=== PATIENT | male | born 1995 | race Caucasian/White ===

== ENCOUNTER 2016-08-13 01:10 | Emergency (ER) | payer BC, OTHER ==
[2016-08-13 01:50] LABS: HEMOGLOBIN 15.2 gm/dl (14.0-17.5); RED BLOOD COUNT 5.24 M/UL (4.20-5.50)
[2016-08-13 02:03] LABS: BUN/CREATININE RATIO 19 (0-10)
== END 2016-08-13 03:45 | disposition home or self-care (01) ==
LOC: ER1 01:10
PROVIDERS: Family Medicine
DX: G40.309 Generalized idiopathic epilepsy and epileptic syndromes, not intractable, without status epilepticus (principal); Z79.899 Other long term (current) drug therapy
CPT/HCPCS: 36415; 80053; 80185; 85025; 96374; 99285; Q2009

== ENCOUNTER 2020-11-26 04:45 | Emergency (ER) | payer BC ==
[~2020-11-26 04:45] MED LIST: IBUPROFEN600 MG PO; VIBRAMYCIN100 MG PO
[2020-11-26] MEDS ORDERED: LODINE CAP 300300 MG PO (05:03)
== END 2020-11-26 05:12 | disposition home or self-care (01) ==
LOC: ER1 04:45
DX: S61.512A Laceration without foreign body of left wrist, initial encounter (principal); W26.8XXA Contact with other sharp object(s), not elsewhere classified, initial encounter; Y92.009 Unspecified place in unspecified non-institutional (private) residence as the place of occurrence of the external cause; Z23 Encounter for immunization
CPT/HCPCS: 12001; 73110; 90471; 90715; 99283

== ENCOUNTER 2021-08-23 17:44 | Emergency (ER) | payer OTHER ==
[~2021-08-23 17:44] MED LIST changes: +LODINE CAP 300300 MG PO
[2021-08-23 18:21] LABS: RED BLOOD COUNT 5.37 M/UL (4.20-5.50); WHITE BLOOD COUNT 9.1 K/UL (4.5-11.0)
[2021-08-23 18:39] LABS: BUN/CREATININE RATIO 15 (0-10)
[2021-08-23] MEDS ORDERED: ZOFRAN ODT 4 MG4 MG PO (21:29)
== END 2021-08-23 21:30 | disposition home or self-care (01) ==
LOC: ER1 17:44
PROVIDERS: Emergency Medicine
DX: S00.81XA Abrasion of other part of head, initial encounter (principal); S00.31XA Abrasion of nose, initial encounter; S10.91XA Abrasion of unspecified part of neck, initial encounter; S20.412A Abrasion of left back wall of thorax, initial encounter; S30.810A Abrasion of lower back and pelvis, initial encounter; R91.1 Solitary pulmonary nodule; G40.909 Epilepsy, unspecified, not intractable, without status epilepticus; V49.9XXA Car occupant (driver) (passenger) injured in unspecified traffic accident, initial encounter; Y92.410 Unspecified street and highway as the place of occurrence of the external cause
CPT/HCPCS: 70450; 71045; 71260; 72125; 80053; 85025; 90471; 90715; 93005; 96374; 99285; J1885; Q9967

== ENCOUNTER 2021-09-02 09:39 | Emergency (ER) | payer BC, OTHER ==
[~2021-09-02 09:39] MED LIST changes: +ZOFRAN ODT 4 MG4 MG PO
== END 2021-09-02 10:33 | disposition home or self-care (01) ==
LOC: ER1 09:39
DX: M25.511 Pain in right shoulder (principal)
CPT/HCPCS: 73030; 96372; 99283; J2360

== ENCOUNTER → 2021-09-12 | Outpatient (CLI) | payer BC, OTHER | LOC: EMI 08:07 → KOH-I 08:07 → EMI 08:15 | DX: M50.20 Other cervical disc displacement, unspecified cervical region (principal); M50.30 Other cervical disc degeneration, unspecified cervical region; M25.511 Pain in right shoulder | CPT/HCPCS: 72141; 73221 ==

== ENCOUNTER → 2021-09-25 | Outpatient (CLI) | payer BC, OTHER | LOC: MRI 09-24 10:30 | DX: M89.9 Disorder of bone, unspecified (principal); R93.7 Abnormal findings on diagnostic imaging of other parts of musculoskeletal system; D18.09 Hemangioma of other sites | CPT/HCPCS: 72142; A9577 ==